=== PATIENT | female | born 1955 | race Caucasian/White ===

== ENCOUNTER → 2023-08-10 | Outpatient (CLI) | payer BC, MEDICARE ==
[2023-08-10 16:04] LABS: BASO # 0.1 10^3/uL (0.0-0.2); BASO % 1.4 % (0.0-1.0); EOS # 0.2 10^3/uL (0.0-0.5); EOS % 4.2 % (0.0-3.0); HEMATOCRIT 41.3 % (36.0-47.0); HEMOGLOBIN 13.4 g/dl (12.0-15.5); LYMPH # 1.4 10^3/uL (1.5-5.0); LYMPH % 27.5 % (24.0-44.0); MEAN CORPUSCULAR HGB CONC 32.4 g/dl (32.0-36.5); MEAN CORPUSCULAR VOLUME 92.6 fl (80.0-96.0); MONO # 0.5 10^3/uL (0.0-0.8); MONO % 9.6 % (2.0-8.0); NEUTROPHILS # 2.9 10^3/uL (1.5-8.5); NEUTROPHILS % 57.1 % (36.0-66.0); PLATELET COUNT, AUTOMATED 323 10^3/uL (150-450); RED BLOOD COUNT 4.46 10^6/uL (4.00-5.40)
[2023-08-10 16:11] LABS: ERYTHROCYTE SEDIMENTATION RATE 22 mm/hr (0-30)
[2023-08-10 16:26] LABS: C REACTIVE PROTEIN QUANTITATIV < 0.40 MG/DL (<1.0)
[2023-08-10 16:28] LABS: ALBUMIN 4.3 G/DL (3.2-5.2); ALKALINE PHOSPHATASE 81 U/L (46-116); ALT/SGPT 27 U/L (7.0-40); AST/SGOT 27 U/L (<34); BILIRUBIN,TOTAL 0.7 MG/DL (0.3-1.2); BLOOD UREA NITROGEN 13 MG/DL (9-23); CALCIUM LEVEL 9.5 MG/DL (8.3-10.6); CARBON DIOXIDE LEVEL 27 MMOL/L (20-31); CHLORIDE LEVEL 107 MMOL/L (98-107); CREATININE FOR GFR 0.79 MG/DL (0.55-1.30); GLOMERULAR FILTRATION RATE > 60.0 (>45); GLUCOSE, FASTING 87 MG/DL (74-106); POTASSIUM SERUM 4.4 MMOL/L (3.5-5.1); SODIUM LEVEL 140 MMOL/L (136-145)
[2023-08-10 16:30] LABS: TOTAL 25(OH) VITAMIN D 30.6 NG/ML (20.0-100.0)
[2023-08-10 16:44] LABS: HEMOGLOBIN A1c 4.8 % (4.0-6.0)
== END ==
LOC: M PLALAB 14:20
PROVIDERS: ATTEND Orthopaedic Surgery
DX: M16.11 Unilateral primary osteoarthritis, right hip (principal)

== ENCOUNTER → 2023-08-10 | Outpatient (CLI) | LOC: M SOG 08:14 | PROVIDERS: ATTEND Orthopaedic Surgery | DX: M25.551 Pain in right hip (principal); M16.11 Unilateral primary osteoarthritis, right hip ==

== ENCOUNTER 2023-10-18 06:39 | Inpatient (IN) | payer MEDICARE, BC ==
[~2023-10-18] VITALS: Ht 160 cm; Wt 92.5 kg
[2023-10-18] VITALS (8 sets, daily range): BP systolic 107–135; BP diastolic 61–81; TEMP 94.8–98.4; O2SAT 88–93
[~2023-10-18 06:39] MED LIST: AMIT25TA19 PO; ATOR1TAB19 PO; ATOR40TA75 PO; DULO1CAP5 PO; PREG200C2 PO; ZOLP5TAB PO
[2023-10-18] MEDS: LR 1,000 ML IV SCH ×2 (06:50→12:20)
[2023-10-18] MEDS ORDERED: ACETAMINOPHEN 1000MG 100ML IV BAG As Ordered ONE (07:10)
[2023-10-18] MEDS ORDERED: propofoL 200 MG/20 ML VIAL As Ordered ONE (07:10)
[2023-10-18] MEDS ORDERED: fentaNYL 100 MCG/2 ML INJECTION As Ordered ONE (07:10)
[2023-10-18] MEDS ORDERED: ONDANSETRON 4MG 2ML VIAL As Ordered ONE (07:10)
[2023-10-18] MEDS ORDERED: SUGAMMADEX SODIUM 500 MG/5 ML VIAL (BRIDION) As Ordered ONE (07:10)
[2023-10-18] MEDS ORDERED: ROCURONIUM BROMIDE 50MG/5ML VIAL As Ordered ONE (07:10)
[2023-10-18] MEDS ORDERED: LIDOCAINE 2% 100MG/5ML SDV (FOR ANES.) As Ordered ONE (07:10)
[2023-10-18] MEDS ORDERED: MIDAZOLAM INJ 2MG/2ML VIAL As Ordered ONE (07:11)
[2023-10-18] MEDS: TRANEXAMIC ACID 100 MG/ML 10ML VIAL IV ONE (07:30)
[2023-10-18] MEDS: ceFAZolin SOD 2 GM in IV 1 EA IV ONE (08:40)
[2023-10-18] MEDS: ceFAZolin 2 GM/D5W 50 ML IV BAG As Ordered ONE (08:40)
[2023-10-18] MEDS: TRANEXAMIC ACID 100 MG/ML 10ML VIAL As Ordered ONE (09:01)
[2023-10-18] MEDS ORDERED: HYDROmorphone HCL 2MG/ML 1ML VIAL As Ordered ONE (09:21)
[2023-10-18] MEDS: REK 50ML SYRINGE IA ONE (09:28)
[2023-10-18 10:43] LABS: HEMATOCRIT 36.1 % (36.0-47.0); HEMOGLOBIN 11.8 g/dl (12.0-15.5)
[2023-10-18] MEDS ORDERED: ePHEDrine SULFATE 25 MG/5 ML(5MG/ML) SYRINGE As Ordered ONE (10:49)
[2023-10-18] MEDS ORDERED: SENNA 8.6 MG TAB (SENOKOT) PO PRN (10:50)
[2023-10-18] MEDS ORDERED: ONDANSETRON 4MG 2ML VIAL IV PRN (10:50)
[2023-10-18] MEDS ORDERED: oxyCODONE 5MG TAB PO PRN ×2 (10:50→11:00)
[2023-10-18] MEDS ORDERED: fentaNYL 100 MCG/2 ML INJECTION IV PRN (11:00)
[2023-10-18] MEDS: ONDANSETRON 4MG 2ML VIAL IV PRN (11:32)
[2023-10-18] MEDS: ACETAMINOPHEN TAB 650MG DOSE (2X325MG) PO SCH (12:00)
[2023-10-18] MEDS: NAPROXEN 250 MG TAB PO SCH (13:17)
[2023-10-18] MEDS: oxyCODONE 5MG TAB PO PRN (13:18)
[2023-10-18] MEDS: ceFAZolin SOD 2 GM in IV 1 EA IV SCH (16:12)
[2023-10-18] MEDS: DOCUSATE SODIUM 100MG CAPSULE PO SCH (20:05)
[2023-10-18] MEDS: ASPIRIN 81MG ENTERIC TABLET PO SCH (20:05)
[2023-10-18] MEDS: zolPIDEM TARTRATE 5 MG TAB PO PRN (23:09)
[2023-10-18] MEDS ORDERED: HOME MED LIST COMPLETE! XX SCH (23:40)
[2023-10-19 04:37] VITALS: BP 113/83; TEMP 98.6; O2SAT 93
[2023-10-19 06:12] LABS: HEMATOCRIT 29.3 % (36.0-47.0); MEAN CORPUSCULAR HEMOGLOBIN 30.5 pg (27.0-33.0); MEAN CORPUSCULAR HGB CONC 32.8 g/dl (32.0-36.5); PLATELET COUNT, AUTOMATED 217 10^3/uL (150-450); RED BLOOD COUNT 3.15 10^6/uL (4.00-5.40); WHITE BLOOD COUNT 4.8 10^3/uL (4.0-10.0)
[2023-10-19 06:18] LABS: HEMOGLOBIN 9.6 g/dl (12.0-15.5)
[2023-10-19 06:44] LABS: ALKALINE PHOSPHATASE 63 U/L (46-116); ALT/SGPT 18 U/L (7.0-40); AST/SGOT 34 U/L (<34); BILIRUBIN,TOTAL 0.5 MG/DL (0.3-1.2); BLOOD UREA NITROGEN 12 MG/DL (9-23); CALCIUM LEVEL 8.7 MG/DL (8.3-10.6); CARBON DIOXIDE LEVEL 28 MMOL/L (20-31); CHLORIDE LEVEL 109 MMOL/L (98-107); CREATININE FOR GFR 0.74 MG/DL (0.55-1.30); GLOMERULAR FILTRATION RATE > 60.0 (>45); GLUCOSE, FASTING 97 MG/DL (74-106); POTASSIUM SERUM 4.1 MMOL/L (3.5-5.1); SODIUM LEVEL 141 MMOL/L (136-145); TOTAL PROTEIN 5.3 G/DL (5.7-8.2)
[2023-10-19 08:00] VITALS: BP 112/80; TEMP 97.9; O2SAT 94
[2023-10-19] MEDS: FERROUS SULFATE 325MG TAB PO SCH (09:13)
[2023-10-19] MEDS: ASCORBIC ACID 500 MG TAB PO SCH (09:13)
[2023-10-19] MEDS: DULoxetine 30MG CAPSULE (CYMBALTA) PO SCH (09:14)
[2023-10-19] MEDS ORDERED: OXYC1TAB23 PO (11:48)
[2023-10-19] MEDS ORDERED: ASPI81TAEC PO (11:48)
[2023-10-19] MEDS ORDERED: CEFA500C2 PO (11:48)
[2023-10-19 12:00] VITALS: BP 115/82; TEMP 97.3; O2SAT 95
[2023-10-19] MEDS ORDERED: ATORVASTATIN 20 MG TAB PO SCH (21:00)
[2023-10-19] MEDS ORDERED: AMITRIPTYLINE 25MG TABLET PO SCH (21:00)
== END 2023-10-19 13:10 | disposition home or self-care (01) | DRG 470 ==
LOC: M SDC 06:39 → M MS5PR 06:40
PROVIDERS: ADMIT Orthopaedic Surgery; ATTEND Orthopaedic Surgery
PROC: 0SR90JZ Replacement of Right Hip Joint with Synthetic Substitute, Open Approach (ICD-10-PCS; principal; 2023-10-18 08:30)
DX: M16.11 Unilateral primary osteoarthritis, right hip (principal); G62.9 Polyneuropathy, unspecified; F32.A Depression, unspecified; E78.00 Pure hypercholesterolemia, unspecified; Z96.642 Presence of left artificial hip joint; Z90.49 Acquired absence of other specified parts of digestive tract; Z79.899 Other long term (current) drug therapy

== ENCOUNTER → 2023-10-31 | Outpatient (CLI) | payer MEDICARE, BC ==
[~2023-10-31] MED LIST changes: +ASPI81TAEC PO; +CEFA500C2 PO; +OXYC1TAB23 PO
== END ==
LOC: M SOG 07:25
PROVIDERS: ATTEND Orthopaedic Surgery
DX: Z96.643 Presence of artificial hip joint, bilateral (principal); Z47.1 Aftercare following joint replacement surgery